=== PATIENT | female | born 1970 | race Caucasian/White ===

== ENCOUNTER 2023-11-04 10:37 | Emergency (ER) | payer MEDICAID ==
[~2023-11-04] VITALS: Ht 154.9 cm; Wt 99.8 kg
[2023-11-04 11:06] VITALS: O2SAT 98
[2023-11-04] MEDS ORDERED: THROMBIN (BOVINE) 5000 UNITS/VIAL TOP ONE (11:25)
[2023-11-04] MEDS ORDERED: LIDOCAINE HCL/EPINEPHRINE 1%-EPI 1:100,000 20 ML VIAL ONE (11:25)
[2023-11-04] MEDS ORDERED: BACITRACIN 14GM TUBE TOP ONE (11:25)
[2023-11-04] MEDS ORDERED: GENTAMICIN SULF 40MG/ML 2ML VIAL ONE (11:25)
[2023-11-04 11:53] LABS: BASOPHILS % 0.4 % (0.0-2.0); EOSINOPHILS % 0.6 % (0.0-5.0); HEMATOCRIT. 36.4 % (36.0-48.0); LYMPHOCYTES % 20.7 % (20.0-50.0); MEAN CORPUSCULAR HEMOGLOBIN 28.1 pg (28.0-32.0); MEAN CORPUSCULAR VOLUME 85.3 fL (81.0-99.0); MEAN PLATELET VOLUME 8.2 fl (7.4-10.4); MONOCYTES % 4.8 % (2.0-8.0); NEUTROPHILS % 73.5 % (40.0-76.0); PLATELET 300 x1000/uL (130-400); RED BLOOD CELL COUNT 4.27 mill/uL (4.2-5.4); RED CELL DISTRIBUTION WIDTH 16.4 % (11.6-14.6); WHITE BLOOD COUNT 10.8 x1000/uL (4.5-11.0)
[2023-11-04 11:54] LABS: CHLORIDE 108 mEq/L (98-107); POTASSIUM 3.9 mEq/L (3.5-5.1); SODIUM 143 mEq/L (136-145)
[2023-11-04 11:55] LABS: CALCIUM 9.8 mg/dL (8.7-10.4); CARBON DIOXIDE 29 mEq/L (21-32)
[2023-11-04 12:00] LABS: CREATININE 0.8 mg/dL (0.6-1.0); GLUCOSE 193 mg/dL (70-105); UREA NITROGEN BLOOD 9 mg/dL (9-23)
[2023-11-04] MEDS: ACETAMINOPHEN 325MG TABLET PO NR (12:15)
[2023-11-04 14:23] LABS: CLARITY URINE CLEAR (CLEAR); COLOR URINE YELLOW (YELLOW); GLUCOSE URINE NEGATIVE (NEGATIVE); KETONES URINE NEGATIVE (NEGATIVE); LEUKOCYTE ESTERASE URINE NEGATIVE (NEGATIVE); NITRITE URINE NEGATIVE (NEGATIVE); OCCULT BLOOD URINE NEGATIVE (NEGATIVE); PH URINE 6.5 (4.5-8.0); PROTEIN URINE NEGATIVE (NEGATIVE); SPECIFIC GRAVITY URINE 1.012 (1.005-1.030); UROBILINOGEN URINE 0.2 E.U./dL (0.2-1.0)
[2023-11-04 15:22] VITALS: BP 209/70; PULSE 63; RESP 19; TEMP 98.4
== END 2023-11-04 15:36 | disposition home or self-care (01) ==
LOC: ER 10:37
DX: M17.0 Bilateral primary osteoarthritis of knee (principal); D64.9 Anemia, unspecified; E11.9 Type 2 diabetes mellitus without complications; E78.00 Pure hypercholesterolemia, unspecified; I10 Essential (primary) hypertension
CPT/HCPCS: 99284; 80048; 81003; 85025; 36415; 73560; J1580; J3490 ×2

== ENCOUNTER 2024-03-20 11:43 | Emergency (ER) | payer MEDICAID, OTHER ==
[~2024-03-20] VITALS: Ht 162.6 cm; Wt 95.0 kg
[2024-03-20 11:48] VITALS: O2SAT 100
[2024-03-20 11:52] VITALS: BP 189/59; PULSE 94; RESP 18; TEMP 98.1; O2SAT 97
== END 2024-03-20 15:13 | disposition home or self-care (01) ==
LOC: ER 11:43
DX: M19.90 Unspecified osteoarthritis, unspecified site (principal); E11.9 Type 2 diabetes mellitus without complications; E78.00 Pure hypercholesterolemia, unspecified; I10 Essential (primary) hypertension
CPT/HCPCS: 73562; 99283

== ENCOUNTER 2024-07-02 12:08 | Emergency (ER) | payer OTHER ==
[~2024-07-02] VITALS: Ht 152.4 cm; Wt 90.0 kg
[2024-07-02 12:24] VITALS: TEMP 98.3; O2SAT 99
[2024-07-02] MEDS ORDERED: KETOROLAC 30MG/ML VIAL IM ONE (14:00)
[2024-07-02] MEDS ORDERED: METOCLOPRAMIDE HCL 10MG TABLET PO ONE (14:00)
[2024-07-02] MEDS ORDERED: DIPHENHYDRAMINE 25MG CAPSULE PO ONE (14:00)
[2024-07-02 14:23] LABS: BASOPHILS % 0.5 % (0.0-2.0); EOSINOPHILS % 0.3 % (0.0-5.0); HEMATOCRIT. 38.7 % (36.0-48.0); HEMOGLOBIN. 12.5 g/dL (12.0-16.0); LYMPHOCYTES % 18.6 % (20.0-50.0); MEAN CORPUSCULAR HEMOGLOBIN 27.7 pg (28.0-32.0); MEAN CORPUSCULAR HGB CONC 32.2 g/dL (31.0-37.0); MEAN PLATELET VOLUME 8.1 fl (7.4-10.4); MONOCYTES % 4.9 % (2.0-8.0); NEUTROPHILS % 75.7 % (40.0-76.0); PLATELET 313 x1000/uL (130-400); RED CELL DISTRIBUTION WIDTH 14.6 % (11.6-14.6); WHITE BLOOD COUNT 12.7 x1000/uL (4.5-11.0)
[2024-07-02 14:36] LABS: CHLORIDE 106 mEq/L (98-107); POTASSIUM 3.6 mEq/L (3.5-5.1); SODIUM 142 mEq/L (136-145)
[2024-07-02 14:37] LABS: CALCIUM 9.7 mg/dL (8.7-10.4); CARBON DIOXIDE 27 mEq/L (21-32)
[2024-07-02 14:42] LABS: CREATININE 0.8 mg/dL (0.6-1.0); GLUCOSE 133 mg/dL (70-105); UREA NITROGEN BLOOD 17 mg/dL (9-23)
[2024-07-02] MEDS ORDERED: ASPI1TAB8 PO (14:56)
[2024-07-02] MEDS: KETOROLAC 30MG/ML VIAL IM NR (16:49)
[2024-07-02] MEDS: METOCLOPRAMIDE HCL 10MG TABLET PO NR (16:49)
[2024-07-02] MEDS: DIPHENHYDRAMINE 25MG CAPSULE PO NR (16:49)
[2024-07-02] MEDS: LISINOPRIL 40MG TABLET PO ONE (17:44)
[2024-07-02] MEDS: NIFEDIPINE XL 30MG TAB PO ONE (17:46)
[2024-07-02 19:01] VITALS: BP 205/55; PULSE 74; RESP 18; O2SAT 98
== END 2024-07-02 19:40 | disposition home or self-care (01) ==
LOC: ER 12:22
DX: G43.909 Migraine, unspecified, not intractable, without status migrainosus (principal); E11.9 Type 2 diabetes mellitus without complications; I10 Essential (primary) hypertension; E78.00 Pure hypercholesterolemia, unspecified; Z79.82 Long term (current) use of aspirin; Z98.890 Other specified postprocedural states
CPT/HCPCS: 99285; 70450; 80048; 81025; 85025; 36415; 93005; 96372; J1885; Q0163; J8597

== ENCOUNTER 2025-04-08 18:05 | Emergency (ER) | payer OTHER ==
[~2025-04-08] VITALS: Ht 152.4 cm; Wt 104.0 kg
[~2025-04-08 18:05] MED LIST: ASPI1TAB8 PO
[2025-04-08 18:21] VITALS: O2SAT 98
[2025-04-08] MEDS: DIPHENHYDRAMINE 25MG CAPSULE PO ONE (19:30)
[2025-04-08] MEDS: DEXAMETHASONE 4MG TABLET PO ONE (19:30)
[2025-04-08] MEDS: METOCLOPRAMIDE HCL 10MG TABLET PO ONE (19:30)
[2025-04-08] MEDS: ACETAMINOPHEN 325MG TABLET PO ONE (19:30)
[2025-04-08] MEDS: AMLODIPINE 5MG TABLET PO ONE (19:30)
[2025-04-08] MEDS: AMLODIPINE 5MG TABLET PO NR (19:30)
[2025-04-08 20:25] LABS: BASOPHILS % 0.4 % (0.0-2.0); EOSINOPHILS % 0.6 % (0.0-5.0); HEMATOCRIT. 38.3 % (36.0-48.0); HEMOGLOBIN. 12.3 g/dL (12.0-16.0); LYMPHOCYTES % 16.8 % (20.0-50.0); MEAN PLATELET VOLUME 8.3 fl (7.4-10.4); MONOCYTES % 5.5 % (2.0-8.0); NEUTROPHILS % 76.7 % (40.0-76.0); PLATELET 273 x1000/uL (130-400); RED BLOOD CELL COUNT 4.55 mill/uL (4.2-5.4); RED CELL DISTRIBUTION WIDTH 15.4 % (11.6-14.6)
[2025-04-08 20:40] LABS: CREATININE 0.8 mg/dL (0.6-1.0); UREA NITROGEN BLOOD 9 mg/dL (9-23)
[2025-04-08 23:54] VITALS: TEMP 37.1
[2025-04-09 01:05] VITALS: BP 149/68; PULSE 63; RESP 12; O2SAT 100
== END 2025-04-09 01:17 | disposition home or self-care (01) ==
LOC: ER 18:05
DX: G43.909 Migraine, unspecified, not intractable, without status migrainosus (principal); E11.9 Type 2 diabetes mellitus without complications; E78.00 Pure hypercholesterolemia, unspecified; I10 Essential (primary) hypertension; Z79.82 Long term (current) use of aspirin; Z87.19 Personal history of other diseases of the digestive system
CPT/HCPCS: 99285; 80048; 85025; 36415; 70450; J8540; Q0163; J8597